=== PATIENT | female | born 1990 | race Caucasian/White ===

== ENCOUNTER 2017-04-27 18:31 | Emergency (ER) | payer OTHER ==
[~2017-04-27 18:31] MED LIST: AMOXICILLIN500 M1 PO; ANTIVERT PO; CIPRO250 MG PO; FAMOTIDINE PO; KEFLEX500 M1 PO; KENALOG63 GM TP; NO MEDICATIONS; PREDNISONE PO; PYRIDIUM100 MG PO; ZYRTEC10 M1 PO
== END 2017-04-27 19:36 | disposition home or self-care (01) ==
LOC: SED 18:31
DX: S39.012A Strain of muscle, fascia and tendon of lower back, initial encounter (principal); M54.42 Lumbago with sciatica, left side; X58.XXXA Exposure to other specified factors, initial encounter
CPT/HCPCS: 99283